=== PATIENT | male | born 1980 | race Caucasian/White ===

== ENCOUNTER 2017-12-12 14:00 | Emergency (ER) | payer BC ==
[~2017-12-12] VITALS: Ht 167.6 cm; Wt 59.1 kg
[~2017-12-12 14:00] MED LIST: ADVIL200 M1 PO; AMOXICILLIN500 M1 PO; CLEOCIN300 MG PO; ULTRAM50 MG PO; ZOFRAN4 MG PO
[2017-12-12 15:53] LABS: SOURCE URINE
[2017-12-12 15:57] LABS: APPEARANCE SL.HAZY ((CLEAR)); BILIRUBIN NEGATIVE; BLOOD MODERATE; COLOR YELLOW ((YELLOW)); GLUCOSE (STRIP) NEGATIVE; KETONES NEGATIVE; LEUKOCYTES LARGE; NITRITE NEGATIVE; PROTEIN (STRIP) NEGATIVE; SPECIFIC GRAVITY 1.006 (1.000-1.030); UROBILINOGEN 0.2 MG/DL (0.2-1.0)
[2017-12-12 16:07] LABS: BACTERIA RARE /HPF; EPITHELIAL CELLS RARE /HPF; MUCUS TRACE /LPF; WHITE BLOOD CELLS TNTC /HPF (0-5)
[2017-12-12 16:41] VITALS: BP 133/87
[2017-12-14 12:30] LABS: CHLAMYDIA TRACHOMATIS NEGATIVE; NEISSERIA GONORRHOEAE NEGATIVE
== END 2017-12-12 16:42 | disposition home or self-care (01) ==
LOC: EME 14:00
PROVIDERS: Physician Assistant
DX: N45.1 Epididymitis (principal)
CPT/HCPCS: 76870; 81003; 87491; 87591; 99281; 99283; J0696

== ENCOUNTER 2017-12-13 21:46 | Emergency (ER) | payer BC ==
[~2017-12-13] VITALS: Ht 167.6 cm; Wt 60.4 kg
[2017-12-14 01:06] LABS: BASOPHIL (%) 0.6 % (0-1); BASOPHIL COUNT 0.1 K/uL (0-0.1); EOSINOPHIL (%) 2.1 % (0-5); EOSINOPHIL COUNT 0.2 K/uL (0-0.3); HEMATOCRIT 41.8 % (38.0-50.0); HEMOGLOBIN 13.7 G/DL (12.5-16.6); IMMATURE GRANULOCYTE (%) 0.4 % (0.0-0.7); LYMPHOCYTE (%) 19.1 % (15-42); LYMPHOCYTE COUNT 1.5 K/uL (1.0-2.8); MCH 28.7 PG (29.0-34.0); MCHC 32.8 G/DL (30.0-36.0); MCV 87.4 FL (86-99); MONOCYTE (%) 9.9 % (3-12); MONOCYTE COUNT 0.8 K/uL (0-0.8); NEUTROPHIL (%) 67.9 % (45-76); NEUTROPHIL COUNT 5.3 K/uL (1.8-6.4); PLATELET COUNT 221 K/uL (156-360); RBC DIS.WIDTH-CV 12.4 % (11.8-14.6); RBC DIS.WIDTH-SD 39.8 % (39-53); RED BLOOD COUNT 4.78 M/uL (4.00-5.50); WHITE BLOOD COUNT 7.7 K/uL (4.1-10.2)
[2017-12-14 01:16] LABS: CHLORIDE 105 mEq/L (99-109); POTASSIUM 3.8 mEq/L (3.7-5.4); SODIUM 140 mEq/L (136-147)
[2017-12-14 01:17] LABS: GLUCOSE 105 mg/dL (70-99)
[2017-12-14 01:21] LABS: CREATININE 0.9 mg/dL (0.6-1.3); GFR ESTIMATE (CALCULATED) > 59 mL/min/ (58.99-99999)
[2017-12-14 01:22] LABS: UREA NITROGEN (BUN) 9 mg/dL (9-23)
[2017-12-14] MEDS ORDERED: PERCOCET 5/31 TABLET PO (03:09)
[2017-12-14] MEDS ORDERED: LEVAQUIN500 MG PO (03:09)
[2017-12-14 03:43] VITALS: BP 142/87
[2017-12-14 08:15] LABS: APPEARANCE CLOUDY ((CLEAR)); COLOR YELLOW ((YELLOW))
[2017-12-14 08:16] LABS: BLOOD LARGE; GLUCOSE (STRIP) NEGATIVE; KETONES NEGATIVE; PH, URINE 6.5 (5-8); PROTEIN (STRIP) 30; SPECIFIC GRAVITY 1.015 (1.000-1.030); UROBILINOGEN 0.2 MG/DL (0.2-1.0)
[2017-12-14 08:17] LABS: BILIRUBIN NEGATIVE
[2017-12-14 08:19] LABS: LEUKOCYTES MODERATE; NITRITE NEGATIVE
[2017-12-14 08:32] LABS: BACTERIA RARE /HPF; EPITHELIAL CELLS RARE /HPF; MUCUS NONE SEEN /LPF; RED BLOOD CELLS TNTC /HPF (0-5); UCUL ADDED? YES; WHITE BLOOD CELLS TNTC /HPF (0-5)
== END 2017-12-14 03:44 | disposition home or self-care (01) ==
LOC: EME 21:46
PROVIDERS: Emergency Medicine
DX: N45.3 Epididymo-orchitis (principal)
CPT/HCPCS: 74177; 80048; 81003; 85025; 87086; 99281; 99284; J1885; J1956; J7030